=== PATIENT | female | born 1940 | race Caucasian/White ===

== ENCOUNTER 2017-04-19 09:00 | Outpatient (CLI) | payer MEDICARE, OTHER ==
[2017-04-19 17:11] LABS: BASOPHILS # (AUTO) 0.1 10^3/uL (0.0-0.1); EOSINOPHILS # (AUTO) 0.3 10^3/uL (0.0-0.7); EOSINOPHILS % (AUTO) 4.6 %; HCT - HEMATOCRIT 39.5 % (37.0-47.0); HGB - HEMOGLOBIN 13.1 g/dL (12.0-16.0); LYMPHOCYTES # (AUTO) 2.4 10^3/uL (1.5-3.5); LYMPHOCYTES % (AUTO) 33.5 %; MEAN CORPUSCULAR HEMOGLOBIN 29.2 pg (27.0-31.0); MEAN CORPUSCULAR HGB CONC 33.1 g/dL (32.0-36.0); MEAN CORPUSCULAR VOLUME 88.2 fL (81.0-99.0); MEAN PLATELET VOLUME 10.9 fL (7.9-10.8); MONOCYTES # (AUTO) 0.6 10^3/uL (0.0-1.0); MONOCYTES % (AUTO) 7.9 %; NEUTROPHILS # (AUTO) 3.9 10^3/uL (1.5-6.6); RED BLOOD COUNT 4.47 10^6/uL (4.20-5.40); RED CELL DISTRIBUTION WIDTH 13.5 % (12.0-15.0); UNCORRECTED WHITE BLOOD COUNT 7.3 x10^3/uL; WHITE BLOOD COUNT 7.3 x10^3/uL (4.8-10.8)
[2017-04-19 17:22] LABS: ALBUMIN/GLOBULIN RATIO 1.4 (1.0-2.2); BILIRUBIN,TOTAL 0.4 mg/dL (0.2-1.0); CALCIUM 10.1 mg/dL (8.5-10.3); CREATININE 0.7 mg/dL (0.4-1.0); TOTAL PROTEIN 7.1 g/dL (6.7-8.2)
== END 2017-04-19 09:01 | disposition home or self-care (01) ==
LOC: LAB.R 09:00
PROVIDERS: ATTEND Physician Assistant Medical
DX: Z79.899 Other long term (current) drug therapy (principal); I10 Essential (primary) hypertension; E03.9 Hypothyroidism, unspecified; E55.9 Vitamin D deficiency, unspecified
CPT/HCPCS: 80053; 82306; 84443; 85025

== ENCOUNTER 2017-04-26 13:23 | Outpatient (CLI) | payer MEDICARE, OTHER | END 2017-04-26 13:24 | disposition home or self-care (01) | LOC: LAB.R 13:23 | PROVIDERS: ATTEND Physician Assistant Medical | DX: N30.00 Acute cystitis without hematuria (principal) | CPT/HCPCS: 87086 ==

== ENCOUNTER 2017-05-06 14:49 | Outpatient (CLI) | payer MEDICARE, OTHER ==
--- NOTE | 2017-05-11 16:09 | DEXA Report ---
DEXA SCAN: 05/06/2017 CLINICAL INDICATION: Evaluate bone density. TECHNIQUE: Dual energy x-ray absorptiometry (DXA) was performed on a Verbling system. Regions measured are the AP spine, femoral neck, and, if needed, forearm. COMPARISON: None. In accordance with the International Society for Clinical Densitometry (ISCD) guidelines, data from previous exams may be reanalyzed using current recommendations and techniques. This is done to allow a more accurate basis for comparison with the current study. FINDINGS LUMBAR SPINE DATA: REGION BMD (g/cm/cm) T-SCORE Z-SCORE L1 1.490 3.0 4.8 L2 1.202 0.0 1.8 L3 1.232 0.3 2.0 L4 1.260 0.5 2.2 TOTAL 1.293 0.9 2.7 NOTE: All evaluable vertebrae are used for classification. HIP DATA: REGION BMD (g/cm/cm) T-SCORE Z-SCORE Neck 0.789 -1.8 0.2 TOTAL 0.857 -1.2 0.7 NOTE: The femoral neck or total proximal femur, whichever is lowest, is used for classification. Lumbar spine density 1.293 gram/sq cm, T-score 0.9, WHO classification normal. Femoral neck density 0.789 gram/sq cm, T-score -1.8, WHO classification osteopenia. IMPRESSION THE WHO CLASSIFICATION BASED ON THE INTERNATIONAL REFERENCE STANDARD: OSTEOPENIA. FRACTURE RISK: INCREASED. RECOMMENDATION: Patients with diagnosis of osteoporosis or osteopenia should have regular bone mineral density assessment. For those eligible for Medicare, routine testing is allowed once every 2 years. Testing frequency can be increased for patients who have rapidly progressing disease or for those who are receiving medical therapy to restore bone mass. COMMENT: World Health Organization (WHO) definitions for osteoporosis and osteopenia: NORMAL BMD: T-score at -1.0 or higher, fracture risk is low. OSTEOPENIA BMD: T-score between -1.0 and -2.5, fracture risk is increased. OSTEOPOROSIS BMD: T-score at -2.5 or lower, fracture risk high. National Osteoporosis Foundation recommends: 1. Obtain adequate dietary calcium (at least 1200 mg per day) and vitamin D (400 -800 international units per day). 2. Participate, as appropriate, in regular weightbearing and muscle- strengthening exercise. 3. Avoid tobacco use and reduce alcohol and caffeine intake. 4. For more detailed information see the website at www.NOF.org. MTDD
== END 2017-05-06 14:50 | disposition home or self-care (01) ==
LOC: DI 14:49
PROVIDERS: ATTEND Physician Assistant Medical
DX: M85.88 Other specified disorders of bone density and structure, other site (principal)
CPT/HCPCS: 77080

== ENCOUNTER 2017-05-06 14:52 | Outpatient (CLI) | payer MEDICARE, OTHER ==
--- NOTE | 2017-05-13 08:57 | Mammography Report ---
DATE OF EXAM: 05/06/2017 DIGITAL SCREENING MAMMOGRAM: 05/06/2017 CLINICAL INDICATION: A 77-year-old with personal history of benign right breast biopsy, family history of breast cancer for screening. COMPARISON: 04/2016, 04/2015, 04/2014, 04/2013, 03/2012, 02/2011, 11/2009. TECHNIQUE: Routine CC and MLO projections were obtained of the breasts. FINDINGS: Scattered fibroglandular tissue is present within the breasts. There are no dominant masses, suspicious microcalcifications, or secondary signs of malignancy. In comparison to the previous studies, there are no significant changes. IMPRESSION: NO MAMMOGRAPHIC EVIDENCE OF MALIGNANCY. NO SIGNIFICANT INTERVAL CHANGES. RECOMMENDATION: Screening mammography is recommended annually. BIRADS category 1 negative. STANDARD QUALIFYING STATEMENTS 1. This examination was reviewed with the aid of Computed-Aided Detection (CAD). 2. A negative or benign imaging report should not delay biopsy if clinically suspicious findings are present. Consider surgical consultation if warranted. More than 5% of cancers are not identified by imaging. 3. Dense breasts may obscure an underlying neoplasm. TD: 05/11/2017 17:09 BETTIE
== END 2017-05-06 14:53 | disposition home or self-care (01) ==
LOC: DI 14:52
PROVIDERS: ATTEND Physician Assistant Medical
DX: Z12.31 Encounter for screening mammogram for malignant neoplasm of breast (principal); Z80.3 Family history of malignant neoplasm of breast
CPT/HCPCS: 77067

== ENCOUNTER 2017-06-07 08:00 | Outpatient (CLI) | payer MEDICARE, OTHER | END 2017-06-07 08:01 | disposition home or self-care (01) | LOC: LAB.R 08:00 | PROVIDERS: ATTEND Physician Assistant Medical | DX: Z79.899 Other long term (current) drug therapy (principal); E03.9 Hypothyroidism, unspecified | CPT/HCPCS: 84443 ==

== ENCOUNTER 2018-04-18 09:50 | Outpatient (CLI) | payer MEDICARE, OTHER ==
[2018-04-18 14:00] LABS: BASOPHILS # (AUTO) 0.1 10^3/uL (0.0-0.1); BASOPHILS % (AUTO) 0.8 %; EOSINOPHILS # (AUTO) 0.2 10^3/uL (0.0-0.7); EOSINOPHILS % (AUTO) 2.8 %; HGB - HEMOGLOBIN 13.3 g/dL (12.0-16.0); LYMPHOCYTES # (AUTO) 2.6 10^3/uL (1.5-3.5); LYMPHOCYTES % (AUTO) 34.4 %; MEAN CORPUSCULAR HEMOGLOBIN 30.2 pg (27.0-31.0); MEAN CORPUSCULAR HGB CONC 34.5 g/dL (32.0-36.0); MEAN CORPUSCULAR VOLUME 87.5 fL (81.0-99.0); MEAN PLATELET VOLUME 10.6 fL (7.9-10.8); MONOCYTES # (AUTO) 0.6 10^3/uL (0.0-1.0); MONOCYTES % (AUTO) 7.4 %; NEUTROPHILS # (AUTO) 4.1 10^3/uL (1.5-6.6); NEUTROPHILS % (AUTO) 54.6 %; PLT - PLATELET COUNT 218 10^3/uL (130-450); RED BLOOD COUNT 4.41 10^6/uL (4.20-5.40); RED CELL DISTRIBUTION WIDTH 13.5 % (12.0-15.0); WHITE BLOOD COUNT 7.6 x10^3/uL (4.8-10.8)
[2018-04-18 14:15] LABS: ALBUMIN 4.3 g/dL (3.2-5.5); ALBUMIN/GLOBULIN RATIO 1.5 (1.0-2.2); ALKALINE PHOSPHATASE 61 IU/L (42-121); ALT ALANINE AMINOTRANSFERASE 15 IU/L (10-60); AST ASPARTATE AMINOTRANSFERASE 20 IU/L (10-42); BILIRUBIN,TOTAL 0.7 mg/dL (0.2-1.0); BUN - BLOOD UREA NITROGEN 17 mg/dL (6-20); CALCIUM 9.4 mg/dL (8.5-10.3); CARBON DIOXIDE - CO2 24 mmol/L (21-32); CHLORIDE 107 mmol/L (101-111); CHOL/HDL RATIO 3.2 (<4.4); CHOLESTEROL 197 mg/dL; CREATININE 0.7 mg/dL (0.4-1.0); GFR - MDRD 81 (>89); GLUCOSE 92 mg/dL (70-100); HDL CHOLESTEROL 62 mg/dL; LDL CHOLESTEROL,CALCULATED 113 mg/dL; LDL/HDL RATIO 1.8 (<4.4); SODIUM 136 mmol/L (135-145); TOTAL PROTEIN 7.1 g/dL (6.7-8.2); VLDL CHOLESTEROL 22 mg/dL
== END 2018-04-18 09:51 ==
LOC: LAB.R 09:50
PROVIDERS: ATTEND Physician Assistant Medical
DX: E55.9 Vitamin D deficiency, unspecified (principal); Z79.899 Other long term (current) drug therapy; E66.3 Overweight; F41.8 Other specified anxiety disorders; I10 Essential (primary) hypertension; E03.9 Hypothyroidism, unspecified
CPT/HCPCS: 80053; 80061; 82306; 83721; 84443; 85025

== ENCOUNTER 2018-04-27 08:00 | Outpatient (CLI) | payer MEDICARE, OTHER ==
[2018-04-27 17:16] LABS: BILIRUBIN,URINE NEGATIVE (NEGATIVE); GLUCOSE, URINE (UA) NEGATIVE (NEGATIVE); KETONES,URINE (UA) NEGATIVE (NEGATIVE); LEUKOCYTE ESTERASE, URINE SMALL (NEGATIVE); NITRITE,URINE NEGATIVE (NEGATIVE); OCCULT BLOOD,URINE TRACE-INTA (NEGATIVE); PROTEIN,URINE NEGATIVE (NEGATIVE); UROBILINOGEN,URINE 0.2 (NORMAL) E.U./dL (NORMAL)
[2018-04-27 17:18] LABS: CLARITY,URINE CLEAR (CLEAR)
== END 2018-04-27 23:59 | disposition home or self-care (01) ==
LOC: LAB.R 08:00
PROVIDERS: ATTEND Physician Assistant Medical
DX: R41.89 Other symptoms and signs involving cognitive functions and awareness (principal)
CPT/HCPCS: 81003; 81599; 82607; 86592

== ENCOUNTER 2018-05-03 08:34 | Outpatient (CLI) | payer MEDICARE, OTHER ==
[2018-05-03] MEDS ORDERED: GADOBUTROL 10 MMOL/10 ML VIAL ONE (08:51)
[2018-05-03] MEDS ORDERED: GADOBUTROL 10 MMOL/10 ML VIAL IVP ONE (10:13)
--- NOTE | 2018-05-03 13:17 | MRI Report ---
Reason: COGNITIVE CHANGES, BACK PAIN, LUMBAR Procedure Date: 05/03/2018 Accession Number: [id number] / [id number] Procedure: MRI - Lumbar Spine W/O CPT Code: FULL RESULT: EXAM: MRI LUMBAR SPINE WITHOUT CONTRAST EXAM DATE: 05/03/2018 10:27 AM. CLINICAL HISTORY: COGNITIVE CHANGES, BACK PAIN, LUMBAR. COMPARISON: LUMBAR SPINE W/O 04/12/2015 4:16 PM ABDOMEN/PELVIS W/ 06/19/2014 2:42 PM. TECHNIQUE: Multiplanar, multisequence T1-weighted and fluid-sensitive sequences of the lumbar spine from T12 to S1 without contrast. Other: None. FINDINGS: Spinal Canal: The conus terminates at L1-L2. The conus medullaris and cauda equina are unremarkable. Alignment: Anterolisthesis 7 mm, L4 on L5. Anterolisthesis 3 mm L3 on L4. Bone Marrow: Five [id number] lumbar vertebral bodies are assumed. No gross fractures or bone lesions. Modic type II degenerative marrow signal T12-L1 interspace with resolution of extensive marrow edema or Modic type I degenerative marrow signal T12-L1 and the comparison MRI lumbar spine 04/12/2015. Disk Levels/Facets: T12-L1: Severe disk degeneration. Diffuse disk bulge osteophyte complex. Mild bilateral foraminal stenosis. Negative for spinal canal stenosis. Left ligamentum flavum thickening. L1-L2: Severe disk degeneration. Mild right foraminal stenosis from facet hypertrophy and endplate spurring. Moderate facet joint arthrosis. Negative for interval changes compared to the MRI 04/12/2015. L2-L3: Moderate right facet joint arthrosis. Negative for spinal canal stenosis or foraminal stenosis. Mild disk degeneration. L3-L4: Severe right and moderate left facet joint arthrosis. Mild spinal canal stenosis. Negative for left foraminal stenosis. Mild right foraminal stenosis from facet hypertrophy and disk bulge. L4-L5: Moderately severe spinal canal stenosis. Severe facet hypertrophic arthropathy. Ligamentum flavum thickening. Severe right lateral recess stenosis. Moderate left lateral recess stenosis. Mild bilateral foraminal stenosis from facet hypertrophy and 7 mm anterolisthesis L4 on L5. Moderate L4-L5 disk degeneration. L5-S1: Severe disk degeneration. Mild facet joint arthrosis. The right intervertebral foramen is negative for stenosis. Mild left foraminal stenosis from facet hypertrophy and disk degeneration. Posterior 2 mm disk protrusion. Musculature: Normal. No edema or fatty atrophy. Other: The partially visualized retroperitoneum is unremarkable. 1.3 cm cyst superior lateral right kidney. IMPRESSION: 1. Moderately severe spinal canal stenosis, severe right lateral recess stenosis, moderate left lateral recess stenosis and mild bilateral foraminal stenosis L4-L5 with minimal change as compared to the MRI lumbar spine 04/12/2015. 2. Anterolisthesis 7 mm L4 on L5 and there is severe bilateral L4-L5 facet arthropathy. Comment: The following findings are so common in adults without low back pain that while we report their presence, they must be interpreted with caution and in the context of the clinical situation. (Reference Jarvik et al, Spine 2001) Prevalence of findings in patients without low back pain: Disk degeneration (any evidence): 92% Disk desiccation/T2 signal loss: 83% Disk height loss: 56% Disk bulge: 64% Disk protrusion: 32% Annular tear/high intensity zone: 38% RADIA
--- NOTE | 2018-05-03 13:47 | MRI Report ---
Reason: COGNITIVE CHANGES, BACK PAIN, LUMBAR Procedure Date: 05/03/2018 Accession Number: [id number] / [id number] Procedure: MRI - Brain W/WO CPT Code: FULL RESULT: EXAM: MRI BRAIN WITHOUT AND WITH CONTRAST EXAM DATE: 05/03/2018 10:26 AM. CLINICAL HISTORY: Cognitive changes. COMPARISON: BRAIN 11/11/2006 10:34 AM. TECHNIQUE: Multiplanar, multisequence T1-weighted and fluid-sensitive MR sequences of the brain were performed. Sequences optimized for routine evaluation. Other: None. IV Contrast: 8 mL Gadavist. FINDINGS: No acute stroke, hemorrhage or enhancing mass. Compared to the prior study, minimal to mild additional generalized cerebral volume loss consistent with aging. Mild to moderate chronic-appearing mildly progressive cerebral white matter disease is present without enhancement likely secondary to aging and chronic microangiopathy. Contrast opacification of the major dural venous sinuses is present as expected. The major arterial skull base flow voids are present. No acute sinus or mastoid disease. Symmetric unremarkable appearance of the orbits. Unremarkable appearance of the pituitary fossa and cavernous sinuses. IMPRESSION: 1. Chronic age-related changes, mildly progressive. 2. No acute abnormality or enhancing mass. RADIA
== END 2018-05-03 08:35 | disposition home or self-care (01) ==
LOC: DI 08:34
PROVIDERS: ATTEND Physician Assistant Medical
DX: M48.061 Spinal stenosis, lumbar region without neurogenic claudication (principal); M51.17 Intervertebral disc disorders with radiculopathy, lumbosacral region; M47.26 Other spondylosis with radiculopathy, lumbar region; R41.89 Other symptoms and signs involving cognitive functions and awareness
CPT/HCPCS: 70553; 72148; A9585

== ENCOUNTER 2018-05-09 15:28 | Outpatient (CLI) | payer MEDICARE, OTHER ==
--- NOTE | 2018-05-10 09:19 | Mammography Report ---
Reason: SCREENING MAMMO Procedure Date: 05/09/2018 Accession Number: [id number] / [id number] Procedure: RO - Screening Mammo w/Helio CPT Code: FULL RESULT: EXAM: Screening Mammo w/Helio DATE: 05/09/2018 4:01 PM CLINICAL HISTORY: Screening encounter. Personal history of breast cancer status post right breast lumpectomy around 1979. Family history of breast cancer in the mother at age 80. TECHNIQUE: Bilateral CC and MLO views were obtained. COMPARISON: 05/06/2017 through 05/21/2014. FINDINGS: The breasts demonstrate scattered fibroglandular densities bilaterally. Postsurgical changes are seen in the right breast. No suspicious masses, clustered microcalcifications, or regions of architectural distortion are identified. IMPRESSION: Benign findings RECOMMENDATION: Routine annual screening unless otherwise clinically indicated. BIRADS CATEGORY 2: Benign findings STANDARD QUALIFYING STATEMENTS: 1. This examination was not reviewed with the aid of Computer-Aided Detection (CAD). 2. A negative or benign imaging report should not preclude biopsy if clinically suspicious findings are present. 3. Dense breasts may obscure an underlying neoplasm. 4. This examination was reviewed with the aid of 3D breast imaging (tomosynthesis).
== END 2018-05-09 15:29 | disposition home or self-care (01) ==
LOC: DI 15:28
PROVIDERS: ATTEND Physician Assistant Medical
DX: Z12.31 Encounter for screening mammogram for malignant neoplasm of breast (principal); Z85.3 Personal history of malignant neoplasm of breast; Z80.3 Family history of malignant neoplasm of breast
CPT/HCPCS: 77063; 77067

== ENCOUNTER 2019-02-16 09:36 | Day surgery (SDC) | payer MEDICARE, OTHER ==
[~2019-02-16 09:36] MED LIST: BRIMONIDINE 0.2% OPHTH DROPS 5 ML ONE; BSS/LIDOCAINE/EPINEPHRINE 1 ML SYRINGE ONE; CYCLOPENTOLATE 1% OPHTH DROPS 2 ML ONE; EPINEPHrine 1 MG/ML AMP ONE; KETOROLAC 0.45% OPHTH DROPS ONE; PHENYLEPHRINE 2.5% OPHTH 2 ML DROPS ONE; PROPARACAINE 0.5% OPHTH DROPS 15 ML ONE; TIMOLOL 0.5% OPHTH DROPS ONE; TRIAMCIN/MOXIFLOX OPHTHALMIC 0.6 ML VIAL IO ONE; VANCOMYCIN OPHTHALMI 8MG/0.8ML 8 MG/0.8 ML SYRINGE IO ONE
[2019-02-16] MEDS ORDERED: MIDAZOLAM 2 MG/2 ML VIAL IVP ONE (09:37)
[2019-02-16] MEDS ORDERED: LACTATED RINGERS 500 ML IV ONE (10:40)
[2019-02-16] MEDS ORDERED: PROPARACAINE 0.5% OPHTH DROPS 15 ML LEFTEYE ONE (10:56)
[2019-02-16] MEDS ORDERED: KETOROLAC 0.45% OPHTH DROPS LEFTEYE ONE (10:56)
[2019-02-16] MEDS ORDERED: PHENYLEPHRINE 2.5% OPHTH 2 ML DROPS LEFTEYE ONE (10:56)
[2019-02-16] MEDS ORDERED: CYCLOPENTOLATE 1% OPHTH DROPS 2 ML LEFTEYE ONE (10:56)
--- NOTE | 2019-02-16 11:08 | ANESTHESIA ---
Pre-Anesthesia VS, & Labs - Diagnosis Left senile combined cataract - Procedure Left phaco with IOL implant Vital Signs: Temp Pulse Resp BP Pulse Ox 36.9 C 74 18 144/78 H 96 02/16/19 10:42 02/16/19 10:42 02/16/19 10:42 02/16/19 10:42 02/16/19 10:42 Height 5 ft 1 in Weight (kg) 68.04 kg Body Mass Index 28.3 - NPO >8 hours - Is Patient ?: Not Applicable - Lab Results Lab results reviewed: No Home Medications and Allergies Home Medications: Ambulatory Orders Losartan [Cozaar] 50 mg PO DAILY 02/15/19 Levothyroxine [Synthroid] 100 mcg PO DAILY 02/15/15 Losartan [Cozaar] 50 mg PO DAILY 02/15/19 Allergies/Adverse Reactions: Allergies Allergy/AdvReac Type Severity Reaction Status Date / Time Penicillins Allergy Severe Anaphylaxis Verified 02/16/19 10:58 ciprofloxacin [From Cipro] Allergy Unknown Verified 02/16/19 10:58 erythromycin base Allergy Unknown Verified 02/16/19 10:58 Sulfa (Sulfonamide Allergy Unknown Verified 02/16/19 10:58 Antibiotics) tetracycline Allergy Unknown Verified 02/16/19 10:58 codeine AdvReac Dizziness Verified 02/16/19 10:58 Anes History & Medical History - Anesthetic History Anesthesia Complications: reports: No previous complications, Other-see comment (History PONV) Family history of Anesthesia Complications: Denies Family history of Malignant Hyperthermia: Denies - Medical History Cardiovascular: reports: Hypertension Pulmonary: reports: None Gastrointestinal: reports: None Urinary: reports: None Neuro: reports: None Musculoskeletal: reports: Osteoarthritis Endocrine/Autoimmune: reports: HyPOthyroidism Blood Disorders: reports: None Skin: reports: None Smoking Status: Never smoker Psychosocial: reports: No issues indicated - Surgical History General: Cholecystectomy Gynecologic: Dilation and currettage Exam General: Alert, Oriented x3, Cooperative Dental: WNL, TMJ Mouth Opening: Greater than 4 Fingerbreadths Neck Mobility: Normal Mallampati classification: II Thyromental Distance: greater than 6 cm Respiratory: Lungs clear Cardiovascular: Regular rate Mental/Cognitive Status: Alert/Oriented X3 Cognitive Status: Within normal limits Plan Anesthesia Type: MAC Consent for Procedure(s) Verified and Reviewed: Yes Code Status: Attempt Resuscitation ASA classification: 2-Mild systemic disease Is this case an emergency?: No
[2019-02-16] MEDS ORDERED: BRIMONIDINE 0.2% OPHTH DROPS 5 ML OPTH ONE (11:45)
[2019-02-16] MEDS ORDERED: BSS/LIDOCAINE/EPINEPHRINE 1 ML SYRINGE IO ONE (11:46)
[2019-02-16] MEDS ORDERED: TRIAMCIN/MOXIFLOX OPHTHALMIC 0.6 ML VIAL IO ONE (11:46)
[2019-02-16] MEDS ORDERED: TIMOLOL 0.5% OPHTH DROPS OPTH ONE (11:46)
[2019-02-16] MEDS ORDERED: CHONDR SULF/HYALURONATE SYRINGE IO ONE (11:46)
[2019-02-16] MEDS ORDERED: EPINEPHrine 1 MG/ML AMP IVP ONE (11:46)
[2019-02-16] MEDS ORDERED: VANCOMYCIN OPHTHALMI 8MG/0.8ML 8 MG/0.8 ML SYRINGE IO ONE (11:47)
[2019-02-16] MEDS ORDERED: BSS/LIDOCAINE/EPINEPHRINE 1 ML SYRINGE ONE (11:49)
[2019-02-16 12:25] VITALS: BP 120/56
--- NOTE | 2019-02-16 18:18 | OPERATIVE REPORT ---
DATE OF SERVICE: 02/16/2019 Physician: Daquan Lam MD PREOPERATIVE DIAGNOSIS: Visually significant cataract, left eye. This was her first cataract surger y. POSTOPERATIVE DIAGNOSIS: Visually significant cataract, left eye. This was her first cataract surge ry. DESCRIPTION OF PROCEDURE: Phacoemulsification with posterior chamber intraocular lens implant, left eye. SURGEON: Daquan Lam MD ANESTHESIA: Monitored anesthesia care. COMPLICATIONS: None. OPERATIVE INDICATIONS: This is an 79-year-old woman with progressive vision loss in the left eye due to 3-4+ nuclear sclerotic, 2+ posterior subcapsular and vacuolar cataract. Best corrected visual ac uity was 20/50 with glare to hand motion vision in the left eye. Indications for surgery are overall decrease in vision, difficulty seeing street signs, difficulty driving in low light or at night, and difficulty driving at night because of headlights from other vehicles. She was consented at length concerning risks and benefits of cataract surgery, after which she expressed a desire to proceed with surgery. OPERATIVE PROCEDURE: The patient was taken in OR #3 and placed under monitored anesthesia care. A s urgical timeout was conducted confirming correct patient, correct procedure, and correct surgical sit e. She was given topical anesthesia, and prepped and draped in the usual sterile fashion. The eye w as entered at the 6 and 3 o'clock positions. Intracameral Shugarcaine was injected into the anterior chamber, followed by Viscoat. A continuous-tear curvilinear capsulorrhexis was performed. The nucl eus was hydrodissected and phacoemulsified. The cortex was evacuated using automated infusion and as piration. Provisc was injected in the capsular bag, and a 20.0 diopter intraocular lens inserted in the bag. Approximately 0.8 mL of a mixture of triamcinolone, moxifloxacin and vancomycin was injecte d subconjunctivally in the superior quadrant for infection and inflammation prophylaxis. I and A was used to evacuate the viscoelastic materials. The eye was inflated to physiologic pressure using bal anced salt solution and found to be watertight. The patient was taken from the operating room in goo d condition and given postoperative instructions. TD: 02/16/2019 12:05
== END 2019-02-16 09:37 | disposition home or self-care (01) ==
LOC: SDS 09:36
PROVIDERS: ATTEND Ophthalmology
PROC: 08RK3JZ Replacement of Left Lens with Synthetic Substitute, Percutaneous Approach (ICD-10-PCS; principal; 2019-02-16 10:00)
DX: H25.812 Combined forms of age-related cataract, left eye (principal); I10 Essential (primary) hypertension; E03.9 Hypothyroidism, unspecified
CPT/HCPCS: 66984; A9270; J3490; V2632

== ENCOUNTER 2019-05-12 09:20 | Outpatient (CLI) | payer MEDICARE, OTHER ==
[2019-05-12 09:48] LABS: BASOPHILS # (AUTO) 0.1 10^3/uL (0.0-0.1); BASOPHILS % (AUTO) 1.1 %; EOSINOPHILS # (AUTO) 0.4 10^3/uL (0.0-0.7); EOSINOPHILS % (AUTO) 5.5 %; HGB - HEMOGLOBIN 12.3 g/dL (12.0-16.0); LYMPHOCYTES # (AUTO) 2.6 10^3/uL (1.5-3.5); LYMPHOCYTES % (AUTO) 34.2 %; MEAN CORPUSCULAR HEMOGLOBIN 28.7 pg (27.0-31.0); MEAN CORPUSCULAR HGB CONC 31.5 g/dL (32.0-36.0); MEAN CORPUSCULAR VOLUME 90.9 fL (81.0-99.0); MEAN PLATELET VOLUME 11.5 fL (7.9-10.8); MONOCYTES # (AUTO) 0.7 10^3/uL (0.0-1.0); MONOCYTES % (AUTO) 9.4 %; NEUTROPHILS # (AUTO) 3.7 10^3/uL (1.5-6.6); NEUTROPHILS % (AUTO) 49.5 %; PLT - PLATELET COUNT 225 10^3/uL (130-450); RED BLOOD COUNT 4.29 10^6/uL (4.20-5.40); RED CELL DISTRIBUTION WIDTH 13.4 % (12.0-15.0); WHITE BLOOD COUNT 7.5 x10^3/uL (4.8-10.8)
[2019-05-12 10:13] LABS: ALBUMIN 4.1 g/dL (3.2-5.5); ALBUMIN/GLOBULIN RATIO 1.4 (1.0-2.2); ALKALINE PHOSPHATASE 61 IU/L (42-121); ALT ALANINE AMINOTRANSFERASE 18 IU/L (10-60); AST ASPARTATE AMINOTRANSFERASE 21 IU/L (10-42); BILIRUBIN,TOTAL 0.9 mg/dL (0.2-1.0); BUN - BLOOD UREA NITROGEN 11 mg/dL (6-20); CALCIUM 9.4 mg/dL (8.5-10.3); CARBON DIOXIDE - CO2 27 mmol/L (21-32); CHLORIDE 108 mmol/L (101-111); CHOL/HDL RATIO 3.2 (<4.4); CHOLESTEROL 187 mg/dL; CREATININE 0.6 mg/dL (0.4-1.0); GFR - MDRD 96 (>89); GLUCOSE 97 mg/dL (70-100); HDL CHOLESTEROL 58 mg/dL; LDL CHOLESTEROL,CALCULATED 111 mg/dL; LDL/HDL RATIO 1.9 (<4.4); SODIUM 142 mmol/L (135-145); VLDL CHOLESTEROL 18 mg/dL
[2019-05-12 14:19] LABS: FREE T4 (FREE THYROXINE) 1.3 ng/dL (0.58-1.64)
== END 2019-05-12 09:21 | disposition home or self-care (01) ==
LOC: LAB 09:20
PROVIDERS: ATTEND Nurse Practitioner
DX: Z79.899 Other long term (current) drug therapy (principal); M85.80 Other specified disorders of bone density and structure, unspecified site; E55.9 Vitamin D deficiency, unspecified; F32.9 Major depressive disorder, single episode, unspecified; F41.9 Anxiety disorder, unspecified; I10 Essential (primary) hypertension; E03.9 Hypothyroidism, unspecified
CPT/HCPCS: 36415; 80053; 80061; 82306; 82607; 83721; 84439; 84443; 85025

== ENCOUNTER 2019-07-24 10:09 | Outpatient (CLI) | payer MEDICARE, OTHER ==
[2019-07-24 10:36] LABS: BASOPHILS # (AUTO) 0.1 10^3/uL (0.0-0.1); BASOPHILS % (AUTO) 0.7 %; EOSINOPHILS # (AUTO) 0.3 10^3/uL (0.0-0.7); HGB - HEMOGLOBIN 13.1 g/dL (12.0-16.0); LYMPHOCYTES # (AUTO) 2.6 10^3/uL (1.5-3.5); MEAN CORPUSCULAR HEMOGLOBIN 29.6 pg (27.0-31.0); MEAN CORPUSCULAR HGB CONC 32.5 g/dL (32.0-36.0); MEAN CORPUSCULAR VOLUME 91.2 fL (81.0-99.0); MEAN PLATELET VOLUME 11.8 fL (7.9-10.8); MONOCYTES # (AUTO) 0.8 10^3/uL (0.0-1.0); MONOCYTES % (AUTO) 9.3 %; NEUTROPHILS # (AUTO) 4.6 10^3/uL (1.5-6.6); NEUTROPHILS % (AUTO) 55.6 %; PLT - PLATELET COUNT 261 10^3/uL (130-450); RED BLOOD COUNT 4.42 10^6/uL (4.20-5.40); RED CELL DISTRIBUTION WIDTH 13.2 % (12.0-15.0); WHITE BLOOD COUNT 8.3 x10^3/uL (4.8-10.8)
[2019-07-24 11:21] LABS: THYROID STIMULATING HORMONE 0.33 uIU/mL (0.34-5.60)
[2019-07-24 11:23] LABS: FREE T4 (FREE THYROXINE) 1.33 ng/dL (0.58-1.64)
== END 2019-07-24 10:10 | disposition home or self-care (01) ==
LOC: LAB 10:09
PROVIDERS: ATTEND Nurse Practitioner
DX: E03.9 Hypothyroidism, unspecified (principal); R53.81 Other malaise; Z79.899 Other long term (current) drug therapy; R53.83 Other fatigue
CPT/HCPCS: 36415; 84439; 84443; 84481; 85025

== ENCOUNTER 2020-02-14 16:42 | Outpatient (CLI) | payer MEDICARE, OTHER ==
--- NOTE | 2020-02-15 09:21 | MRI Report ---
PROCEDURE: Lumbar Spine W/O INDICATIONS: OSSEOUS STENOSIS OF NEURAL CANAL OF LUMBAR REGION TECHNIQUE: Noncontrast sagittal T1 spin echo and T2 fast echo, sagittal STIR, axial T1 and T2 fast spin echo thr ough the lumbar spine. In cases with scoliosis, additional coronal T2 fast spin echo may be performe d. COMPARISON: Prior lumbar MRI examinations of 04/12/2015 and 05/03/2018 FINDINGS: Image quality: Diagnostic Alignment and Curvature: There is minimal retrolisthesis seen at T12-L1 and L1-L2. Mild grade 1 ante rolisthesis is seen at L4-L5. Bone Marrow: Marrow is of normal overall signal. No acute vertebral body compression fractures. Spinal Cord: Conus medullaris terminates at the L1 level. Visualized cord demonstrates normal signa l and size. Paraspinous Soft Tissues: No paravertebral masses. T12-L1: At least moderate loss of disc height and disc signal can be seen. Reactive marrow endplate changes are seen, which demonstrate mixed signal and are attributed to a combination of edema and fat ty metaplasia (Modic type I and Modic type II changes). Moderate disc bulge is seen, with a central/ left disc protrusion seen. Mild to moderate facet hypertrophy is seen. There is moderate bilateral ne uroforaminal narrowing seen, left worse than right. Mild to moderate central canal narrowing is seen. These imaging findings are similar to the images of the prior examination. L1-L2: At least moderate loss of disc height and disc signal can be seen. Reactive marrow endplat e changes are seen, which are hyperintense on T1-weighted and T2-weighted imaging, without significan t increased STIR signal. These imaging findings are most consistent with fatty metaplasia (Modic type 2 change). Moderate disc bulge is seen, which is eccentric to the right, with a right lateral reces s/right foraminal disc protrusion seen. Moderate facet hypertrophy is seen. There is mild to modera te left-sided and moderate right-sided neuroforaminal narrowing seen. Mild central canal narrowing i s seen. These imaging findings are similar to the images of the prior examination. L2-L3: Moderate loss of disc height and signal are seen. Moderate disc bulge is seen at this leve l. Moderate facet hypertrophy is seen. Associated hypertrophy of the ligamentum flavum can be seen . There is mild to moderate right-sided and mild left-sided neuroforaminal narrowing seen. Mild to m oderate central canal narrowing is seen. Mild progression compared to 2018. L3-L4: Mild loss of disc height and disc signal are seen. Mild to moderate disc bulge is seen. At l east moderate facet hypertrophy is seen. Associated hypertrophy of the ligamentum flavum can be seen. Moderate bilateral neural foraminal narrowing is seen. Moderate central canal narrowing is seen. These imaging findings are similar to the images of the prior examination. L4-L5: Moderate loss of disc height and signal are seen. At least moderate disc bulge is seen, wh ich is eccentric to the right. Prominent facet hypertrophy is seen. Associated hypertrophy of the lig amentum flavum can be seen. Moderate to severe bilateral neuroforaminal narrowing is seen, right wor se than left. Compression is seen upon the exiting nerve roots. Moderate to severe central canal desmond rowing is seen, as on series 701 image 11. These degenerative changes have progressed when compared t o the prior examination. L5-S1: Moderate loss of disc height and signal are seen. Moderate disc bulge is seen, which is ecce ntric to the left. Bridging endplate osteophytes are seen on the left side. Mild to moderate facet hy pertrophy is seen. There is mild right-sided and moderate left-sided neuroforaminal narrowing seen. M inimal central canal narrowing is seen. These imaging findings are similar to the images of the levon or examination. IMPRESSION: Multiple levels of lumbar spine degenerative change are seen, which are most prominent a t the L4-L5 level. Overall, mild progression of degenerative change compared to 2018. Reviewed by: Diogenes Vargas MD on 02/15/2020 8:19 AM ALL Approved by: Diogenes Vargas MD on 02/15/2020 8:19 AM ALL Station ID: [id number]
== END 2020-02-14 16:43 | disposition home or self-care (01) ==
LOC: DI 16:42
PROVIDERS: ATTEND Nurse Practitioner
DX: M43.15 Spondylolisthesis, thoracolumbar region (principal); M43.16 Spondylolisthesis, lumbar region; M51.35 Other intervertebral disc degeneration, thoracolumbar region; M48.05 Spinal stenosis, thoracolumbar region; M51.25 Other intervertebral disc displacement, thoracolumbar region; M47.815 Spondylosis without myelopathy or radiculopathy, thoracolumbar region; M51.36 Other intervertebral disc degeneration, lumbar region; M48.061 Spinal stenosis, lumbar region without neurogenic claudication; M47.816 Spondylosis without myelopathy or radiculopathy, lumbar region; M51.26 Other intervertebral disc displacement, lumbar region; M51.37 Other intervertebral disc degeneration, lumbosacral region; M48.07 Spinal stenosis, lumbosacral region; M47.817 Spondylosis without myelopathy or radiculopathy, lumbosacral region
CPT/HCPCS: 72148

== ENCOUNTER 2020-05-15 13:58 | Outpatient (CLI) | payer MEDICARE, OTHER ==
[2020-05-15 18:47] LABS: THYROID STIMULATING HORMONE 0.93 uIU/mL (0.34-5.60)
[2020-05-15 18:49] LABS: FREE T3 2.9 pg/mL (2.5-3.9)
[2020-05-15 18:51] LABS: FREE T4 (FREE THYROXINE) 1.18 ng/dL (0.58-1.64)
== END 2020-05-15 13:59 | disposition home or self-care (01) ==
LOC: LAB.WCP 13:58
PROVIDERS: ATTEND Nurse Practitioner
DX: E55.9 Vitamin D deficiency, unspecified (principal); E03.9 Hypothyroidism, unspecified; I10 Essential (primary) hypertension; Z79.899 Other long term (current) drug therapy
CPT/HCPCS: 36415; 82306; 84439; 84443; 84481

== ENCOUNTER 2020-09-17 11:27 | Outpatient (CLI) | payer MEDICARE, OTHER ==
--- NOTE | 2020-09-18 13:42 | Mammography Report ---
BILATERAL DIGITAL SCREENING MAMMOGRAM 3D/2D: 09/17/2020 CLINICAL: Routine screening. Family history of breast cancer. Comparison is made to exams dated: 05/09/2018 mammogram, 05/06/2017 mammogram, 05/11/2016 mammogram, and 05/01/2015 mammogram - [facility]. There are scattered fibroglandular elements in both breasts. No significant masses, calcifications, or other findings are seen in either breast. There has been no significant interval change. IMPRESSION: NEGATIVE There is no mammographic evidence of malignancy. A 1 year screening mammogram is recommended. This exam was interpreted at Station ID: [id number]. NOTE: For mammograms, a report in lay terms will be sent to the patient. Approximately 15% of breast malignancies will not be visualized mammographically. In the management of a palpable breast mass, a negative mammogram must not discourage biopsy of a clinically suspicious lesion. Electronically Signed By: Nabeel Ackerman M.D. slc/penrad:09/17/2020 12:11:38 ACR BI-RADS Category 1: Negative 3341F PARENCHYMAL PATTERN: (A) - The breast(s) demonstrate(s) scattered fibroglandular densities. BI-RADS CATEGORY: (1) - 1 RECOMMENDATION: (ANNUAL) - Recommend routine annual screening mammography. [id number] 1 year screening LATERALITY: (B)
== END 2020-09-17 11:28 | disposition home or self-care (01) ==
LOC: DI 11:27
PROVIDERS: ATTEND Family Medicine
DX: Z12.31 Encounter for screening mammogram for malignant neoplasm of breast (principal); Z80.3 Family history of malignant neoplasm of breast

== ENCOUNTER 2020-09-30 20:24 | Outpatient (CLI) | payer MEDICARE, OTHER | END 2020-09-30 20:25 | disposition home or self-care (01) | LOC: COV 20:24 | PROVIDERS: ATTEND Ophthalmology | DX: Z01.812 Encounter for preprocedural laboratory examination (principal); H25.811 Combined forms of age-related cataract, right eye; Z20.822 Contact with and (suspected) exposure to COVID-19 ==

== ENCOUNTER 2020-10-03 07:25 | Day surgery (SDC) | payer MEDICARE, OTHER ==
[~2020-10-03 07:25] MED LIST changes: -BRIMONIDINE 0.2% OPHTH DROPS 5 ML ONE; -BSS/LIDOCAINE/EPINEPHRINE 1 ML SYRINGE ONE; -CYCLOPENTOLATE 1% OPHTH DROPS 2 ML ONE; -EPINEPHrine 1 MG/ML AMP ONE; -PHENYLEPHRINE 2.5% OPHTH 2 ML DROPS ONE; -TIMOLOL 0.5% OPHTH DROPS ONE; -TRIAMCIN/MOXIFLOX OPHTHALMIC 0.6 ML VIAL IO ONE; -VANCOMYCIN OPHTHALMI 8MG/0.8ML 8 MG/0.8 ML SYRINGE IO ONE
[2020-10-03] MEDS ORDERED: EPINEPHrine 1 MG/ML AMP ONE (07:56)
[2020-10-03] MEDS ORDERED: TRIAMCIN/MOXIFLOX OPHTHALMIC 0.6 ML VIAL IO ONE ×2 (07:56→08:53)
[2020-10-03] MEDS ORDERED: BRIMONIDINE 0.2% OPHTH DROPS 5 ML ONE (07:56)
[2020-10-03] MEDS ORDERED: TIMOLOL 0.5% OPHTH DROPS ONE (07:56)
[2020-10-03] MEDS ORDERED: BSS/LIDOCAINE/EPINEPHRINE 1 ML SYRINGE ONE (07:56)
[2020-10-03] MEDS ORDERED: LACTATED RINGERS 500 ML IV ONE ×2 (07:57→09:21)
[2020-10-03] MEDS ORDERED: VANCOMYCIN OPHTHALMI 8MG/0.8ML 8 MG/0.8 ML SYRINGE IO ONE ×2 (07:57→08:53)
--- NOTE | 2020-10-03 08:08 | ANESTHESIA ---
Pre-Anesthesia VS, & Labs - Diagnosis right senile combined cataract - Procedure right eye cataract extraction with IOL Vital Signs: Temp Pulse Resp BP Pulse Ox 36.5 C 76 16 146/68 H 98 10/03/20 07:30 10/03/20 07:30 10/03/20 07:30 10/03/20 07:30 10/03/20 07:30 Height: 5 ft 1 in Weight (kg): 69.2 kg Body Mass Index: 28.8 BMI Classification: Overweight - NPO >8 hours - Is Patient ?: No Home Medications and Allergies Home Medications: Ambulatory Orders Acetaminophen [Tylenol] 2 tab PO DAILY 10/02/20 Baclofen 5 mg PO TID 10/02/20 Meloxicam [Mobic] 1 tablet PO TID 10/02/20 Levothyroxine [Synthroid] 100 mcg PO DAILY 02/15/15 Losartan [Cozaar] 50 mg PO DAILY 02/15/19 Acetaminophen [Tylenol] 2 tab PO DAILY 10/02/20 Baclofen 5 mg PO TID 10/02/20 Meloxicam [Mobic] 1 tablet PO TID 10/02/20 Allergies/Adverse Reactions: Allergies Allergy/AdvReac Type Severity Reaction Status Date / Time Penicillins Allergy Severe Anaphylaxis Verified 10/02/20 14:05 ciprofloxacin [From Cipro] Allergy Unknown Verified 10/02/20 14:05 erythromycin base Allergy Unknown Verified 10/02/20 14:05 Sulfa (Sulfonamide Allergy Unknown Verified 10/02/20 14:05 Antibiotics) tetracycline Allergy Unknown Verified 10/02/20 14:05 codeine AdvReac Dizziness Verified 10/02/20 14:05 Anes History & Medical History - Medical History Cardiovascular: reports: Hypertension Pulmonary: reports: None Gastrointestinal: reports: None Urinary: reports: None Neuro: reports: None Musculoskeletal: reports: Osteoarthritis, Chronic back pain (sciatica) Endocrine/Autoimmune: reports: HyPOthyroidism Blood Disorders: reports: None Skin: reports: None Smoking Status: Never smoker Psychosocial: reports: No issues indicated History of Cancer?: No - Surgical History General: reports: Cholecystectomy, Colonoscopy Eyes Ears Nose Throat (EENT): reports: Cataracts Gynecologic: reports: Dilation and currettage Exam General: Alert, Oriented x3, Cooperative, No acute distress Dental: WNL Mouth Openin Fingerbreadth Neck Mobility: Normal Mallampati classification: I Thyromental Distance: 4-6 cm Mental/Cognitive Status: Alert/Oriented X3, Normal for patient Plan Anesthesia Type: MAC Consent for Procedure(s) Verified and Reviewed: Yes Code Status: Attempt Resuscitation ASA classification: 2-Mild systemic disease Is this case an emergency?: No
[2020-10-03] MEDS ORDERED: MIDAZOLAM 2 MG/2 ML VIAL ONE (08:16)
[2020-10-03] MEDS ORDERED: CHONDR SULF/HYALURONATE SYRINGE IO ONE (08:52)
[2020-10-03] MEDS ORDERED: EPINEPHrine 1 MG/ML AMP IR ONE (08:52)
[2020-10-03] MEDS ORDERED: BRIMONIDINE 0.2% OPHTH DROPS 5 ML OPTH ONE (08:52)
[2020-10-03] MEDS ORDERED: TIMOLOL 0.5% OPHTH DROPS OPTH ONE (08:52)
[2020-10-03] MEDS ORDERED: BSS/LIDOCAINE/EPINEPHRINE 1 ML SYRINGE IO ONE (08:52)
[2020-10-03] MEDS ORDERED: PROPARACAINE 0.5% OPHTH DROPS 15 ML EACHEYE ONE (08:53)
[2020-10-03 09:24] VITALS: BP 127/60
--- NOTE | 2020-10-03 10:13 | OPERATIVE REPORT ---
DATE OF SERVICE: 10/03/2020 Physician: Daquan Lam MD PREOPERATIVE DIAGNOSIS: Visually significant cataract, right eye. Cataract surgery was performed on the left eye on 02/16/2019. POSTOPERATIVE DIAGNOSIS: Visually significant cataract, right eye. Cataract surgery was performed o n the left eye on 02/16/2019. PROCEDURE: Phacoemulsification with posterior chamber intraocular lens implant, right eye. SURGEON: Daquan Lam III, MD ANESTHESIA: Monitored anesthesia care. COMPLICATIONS: None. OPERATIVE INDICATIONS: This is an 80-year-old woman with progressive vision loss in the right eye du e to 3+ nuclear sclerotic and vacuole cataract. Best corrected visual acuity was 20/25 with glare to 20/250 in the right eye. Indications for surgery were overall decrease in vision, difficulty seeing words on a computer screen, difficulty reading, difficulty seeing words, closed caption or game scor es on TV and difficulty with glare or bright lights in any situation. She was consented at length co ncerning risks and benefits of cataract surgery, after which she expressed a desire to proceed with s sumaery. OPERATIVE PROCEDURE: The patient was taken into OR #3 and placed under monitored anesthesia care. A surgical timeout was conducted, confirming correct patient, correct procedure and correct surgical s ite. She was given topical anesthesia and prepped and draped in the usual sterile fashion. The eye was entered at the 12 and 9 o'clock positions. Intracameral Shugarcaine was injected into the anteri or chamber followed by Viscoat. A continuous-tear curvilinear capsulorrhexis was performed. The nuc leus was hydrodissected and phacoemulsified. The cortex was evacuated using automated infusion and a spiration. Provisc was injected in the capsular bag and a 19.5 diopter intraocular lens inserted int o the bag. Infusion and aspiration were used to evacuate the viscoelastic materials. The eye was in flated to physiologic pressure using balanced salt solution and found to be watertight. Approximatel y 0.25 mL mixture of triamcinolone and moxifloxacin was injected transsclerally into the vitreous in the inferotemporal quadrant. An additional 0.55 mL mixture of triamcinolone, moxifloxacin, and vanco mycin was injected subconjunctivally in the superior quadrant for infection and inflammation prophyla xis. Wound integrity was checked with Weck-Miya sponges. The patient was taken from the operating ro om in good condition and given postoperative instructions. TD: 10/03/2020 09:53
--- NOTE | 2020-10-03 13:14 | ANESTHESIA POST OP EVALUATION ---
Anesthesia Post Eval - Post Anesthesia Eval Vitals: Last Vital Signs Temp 36.5 C 10/03/20 09:23 Pulse 70 10/03/20 09:23 Resp 12 10/03/20 09:23 BP 127/60 10/03/20 09:23 Pulse Ox 97 10/03/20 09:23 CV Function Including HR & BP: Stable Pain Control: Satisfactory Nausea & Vomiting: Negative Mental Status: Baseline Respiratory Status: Airway Patent Hydration Status: Satisfactory Anesthesia Complications: None
== END 2020-10-03 07:26 | disposition home or self-care (01) ==
LOC: SDS 07:25
PROVIDERS: ATTEND Ophthalmology
DX: H25.811 Combined forms of age-related cataract, right eye (principal); E03.9 Hypothyroidism, unspecified; I10 Essential (primary) hypertension; E66.3 Overweight; Z68.28 Body mass index [BMI] 28.0-28.9, adult; Z98.42 Cataract extraction status, left eye
CPT/HCPCS: 66984; A9270; J3490; J7120

== ENCOUNTER 2020-10-15 12:02 | Outpatient (CLI) | payer MEDICARE, OTHER ==
--- NOTE | 2020-10-15 15:27 | CT Report ---
PROCEDURE: LOWER EXTREMITY WO - LT INDICATIONS: PAIN IN LT KNEE TECHNIQUE: Noncontrast 1 mm axial sections acquired of the left knee, with coronal and sagittal reformats. COMPARISON: None. FINDINGS: Image quality: Excellent. Bones: No acute fracture identified. Scattered subchondral sclerosis and spurring. Moderate narrowi ng of the medial joint space. Small loose body in the intercondylar notch on image 68/6 measuring 3-4 mm. Large Mishra's cyst incidentally noted measuring 8.2 cm in the cephalocaudad dimension. Soft tissues: Small joint effusion. IMPRESSION: Moderate osteoarthritis. Small loose body seen in the intercondylar notch Large Mishra's cyst Small joint effusion If the patient's pain or other symptoms persist, consider further evaluation with MRI. Reviewed by: Thee Doe MD on 10/15/2020 3:26 PM PDT Approved by: Thee Doe MD on 10/15/2020 3:26 PM PDT Station ID: [id number]
== END 2020-10-15 12:03 | disposition home or self-care (01) ==
LOC: DI 12:02
PROVIDERS: ATTEND Nurse Practitioner Family
DX: M25.562 Pain in left knee (principal); M17.12 Unilateral primary osteoarthritis, left knee; M71.22 Synovial cyst of popliteal space [Baker], left knee; M23.42 Loose body in knee, left knee

== ENCOUNTER 2020-12-19 11:35 | Outpatient (CLI) | payer MEDICARE, OTHER ==
--- NOTE | 2020-12-19 15:40 | XRAY Report ---
PROCEDURE: Hip w/Pelvis 2-3V LT INDICATIONS: LUMBAGO WITH SCIATICA LEFT TECHNIQUE: AP pelvis with lateral view(s) of the left hip(s). COMPARISON: X-ray hip 08/28/2015 FINDINGS: Bones: No fractures or dislocations. Pelvic ring appears intact. No suspicious bony lesions. Dege nerative changes are present within the lower lumbar spine. Mild to moderate bilateral degenerative h ip joint space narrowing, minimally progressive. Small periarticular osteophytes are present without erosions. Soft tissues: The visualized bowel gas pattern is normal. No suspicious soft tissue calcifications. IMPRESSION: 1. Minimally progressive osteoarthritis within the hips bilaterally. Reviewed by: Misty Rodriguez MD on 12/19/2020 3:39 PM PDT Approved by: Misty Rodriguez MD on 12/19/2020 3:39 PM PDT Station ID: [id number]
--- NOTE | 2020-12-19 15:51 | XRAY Report ---
PROCEDURE: Lumbar Spine 2 View INDICATIONS: LUMBAGO WITH SCIATICA LEFT TECHNIQUE: 2 views of the lumbar spine were acquired. COMPARISON: MR Lumbar Spine 02/14/20 FINDINGS: Bones: 5 [id number] vertebrae are present. There is Grade 1 anterolithesis of L4 on L5 measuri ng 9 mm. No vertebral body compression fractures. No suspicious bony lesions. There is multilevel moderate to severe degenerative disc space narrowing most significant at L5-S1. Severe foraminal narr owing is also noted at L5-S1, moderate L4-5. There is a very minimal leftward curvature of the lumbar spine with apex at L3. Soft tissues: Overlying bowel gas pattern is normal. No suspicious soft tissue calcifications. IMPRESSION: Multilevel degenerative changes most severe at L5-S1. If there is concern for further ev aluation of potential nerve root compression at the areas of foraminal narrowing, MRI lumbar spine wi thout contrast is recommended. Reviewed by: Misty Rodriguez MD on 12/19/2020 3:50 PM PDT Approved by: Misty Rodriguez MD on 12/19/2020 3:50 PM PDT Station ID: [id number]
== END 2020-12-19 11:36 | disposition home or self-care (01) ==
LOC: DI.S 11:35
PROVIDERS: ATTEND Nurse Practitioner Family
DX: M43.16 Spondylolisthesis, lumbar region (principal); M51.36 Other intervertebral disc degeneration, lumbar region; M51.37 Other intervertebral disc degeneration, lumbosacral region; M48.07 Spinal stenosis, lumbosacral region; M16.0 Bilateral primary osteoarthritis of hip

== ENCOUNTER 2021-06-18 15:40 | Outpatient (CLI) | payer MEDICARE, OTHER | END 2021-06-18 23:59 | disposition home or self-care (01) | LOC: RT 15:40 | PROVIDERS: ATTEND Nurse Practitioner Family | DX: R06.09 Other forms of dyspnea (principal) | CPT/HCPCS: 93005 ==

== ENCOUNTER 2021-07-03 12:22 | Outpatient (CLI) | payer MEDICARE, OTHER ==
--- NOTE | 2021-07-03 13:33 | CARDIAC PROCEDURE NOTE ---
Stress Test Report Service Date: 07/03/21 Service Time: 12:30 Ordering Provider: Sheri Wilson NP Indication for Test: Assess for an ischemic contribution to exertional dyspnea. Significant Medical History: Siri reports gradually progressive exertional dyspnea over the past approximately 3 years, since the time of her 's passing and a short episode of confusion with left-sided weakness. These latter symptoms fully resolved within 30-60 minutes but she wondered if she may have had a "mini- stroke", for which she never sought evaluation. Her exertional dyspnea has worsened during the Covid pandemic, due to its imposed reduction in her usual activities out and about. In recent weeks to months she fairly reproducibly notices shortness of breath [place] and at times going up the single flight of stairs in her home, requiring her to stop and catch her breath. She denies other associated potential ischemic symptoms such as chest discomfort, abdominal discomfort, significant diaphoresis and lighth eadedness. She has a separate concern for occasional diaphragmatic "cramps" which are always nonexertional, and occur randomly with discomfort slightly to the left of the midline under her diaphragm. The discomfort typically resolve with massage over the course of about 15 minutes. She questions whether her symptoms could represent congestive heart failure, which her mother and maternal uncle suffered from. Cardiac Risk Factors: Has history of treated hypertension and some family history of heart disease on both sides of her familly; she denies tobacco smoking ever and known diabetes or hyperlipidemia. Type of Stress Test: ETT with Myocardial Perfusion Imaging Procedure: -Exercise Treadmill Test- After signing informed consent, the patient underwent resting SPECT imaging and then performed treadmill exercise using a Modified Donaldo protocol. The patient exercised for 7 minutes and achieved a peak heart rate of 128 (92 percent predicted maximum heart rate for age), and an estimated workload of 4.1 METS. The test was terminated due to fatigue/shortness of breath, having achieved her target heart rate. Resting heart rate: 89 Peak heart rate: 128 Normal response to exercise. Resting BP: 177/107 Peak BP: 194/101 Hypertensive at rest with physiologic BP response to exercise. Rhythm during exercise: Sinus rhythm throughout. Symptoms: She reported increased dyspnea at about 6:30 of exercise that was becoming limiting; she experienced no chest discomfort or cramping. EKG at rest showed normal sinus rhythm, normal in all aspects. EKG at peak stress showed J-point depression with upsloping ST segments NOT meeting diagnostic criteria for ischemia. In Recovery heart rate and blood pressure gradually declined, remaining elevated above baseline (96, 165/96) at 5 minutes. Nuclear imaging performed at rest and with stress and will be reported separately. Quan Laws MD, was present throughout this treadmill stress study and supervised it in its entirety. Summary: 1) Exercise tolerance above average for age as evidenced by SHERLYN of -32%. 2) Normal resting EKG. 3) Adequate level of exercise was achieved on this treadmill stress test. 4) Hypertensive at rest with further physiologic BP increase with exercise. 5) No ischemic changes by EKG criteria were seen at peak stress. 6) Analysis of gated nuclear images reveals normal left ventricular size and systolic function; SPECT analysis reveals normal perfusion of the left ventricle at rest and following treadmill stress, thus no evidence of prior infarct or inducible ischemia. See separate report for more detail. CONCLUSIONS: 1) Low risk treadmill stress myocardial perfusion study with absence of inducible ischemia by symptoms, EKG and perfusion imaging. 2) She was encouraged to continue to work on slow/steady weight loss and to continue monitoring efficacy of blood pressure control.
[2021-07-03] MEDS ORDERED: REGADENOSON 0.4 MG/5 ML SYRINGE IVP ONE (14:12)
[2021-07-03] MEDS ORDERED: AMINOPHYLLINE 500 MG/20 ML VIAL ONE (14:12)
--- NOTE | 2021-07-04 10:00 | Nuclear Medicine Report ---
PROCEDURE: Rest and pharmacological myocardial perfusion SPECT with gated imaging and ejection fraction INDICATIONS: DYSPNEA ON EXERTION/ LEXISCAN RADIOPHARMACEUTICAL: 11.9 mCi Tc-99m Myoview IV at rest and 34.1 mCi Tc-99m Myoview IV at peak exerc ise. Wgg-joa-bcsxtrix was performed. TECHNIQUE: Radiopharmaceutical was injected at peak stress test, and also at rest. SPECT images wer e obtained. SPECT myocardial perfusion images were displayed in short axis, horizontal long axis, an d vertical long axis views. Gated images were reviewed using AutoQUANT software. COMPARISON: None available. FINDINGS: Raw data: There is good myocardial labeling by radiotracer. No significant motion artifacts. Lung- to-heart ratio is 0.40 (normal is less than 0.46 for tetrafosmin tracer). Left ventricle function: Gated images demonstrate normal left ventricle wall thickening. No segment al wall motion abnormality. No transient ischemic dilation; TID is 1.08 (normal less than 1.30). Th e left ventricle resting end-diastolic volume is normal. Left ventricle stress ejection fraction is >70%; values are above 45%. Myocardial perfusion: There is normal distribution of activity in the left and right ventricular juan cardium. No fixed or reversible perfusion defects. IMPRESSION: 1. Normal myocardial perfusion images. No perfusion defect to suggest myocardial ischemia or infarct. 2. Normal left ventricular volume and systolic function. 3. Please correlate with stress EKG result. PQRS ATTESTATIONS: Measure 322 - Is this imaging test primarily performed on a low-risk surgery patient for preoperative evaluation within 30 days preceding their low-risk non-cardiac surgery? Low-risk surgery is defined as cardiac or myocardial infarction less than 1%, including (but not limited to) endoscopic pr ocedures, superficial procedures, cataract surgery, and excisional breast surgery: Answer: No Measure 323 - Is this imaging test performed primarily for the monitoring of an asymptomatic patient who had percutaneous coronary intervention on the visit date or within 2 years of the visit date? An swer: No Measure 324 - Is this imaging test performed primarily for the initial detection and risk assessment on an asymptomatic, low coronary heart disease patient? Low CHD risk definition = clinicians should consider the maximum number of available patient factors used to estimate risk based on [place] (A TP III criteria), typically age, gender, diabetes, smoking status, and use of blood pressure medicati on, and integrate age appropriate estimates for missing elements, such as LDL or standard blood press ure. Answer: No Reviewed by: Whitney Worthy MD on 07/04/2021 9:58 AM PST Approved by: Whitney Worthy MD on 07/04/2021 9:58 AM PST Station ID: [id number]
== END 2021-07-03 12:23 | disposition home or self-care (01) ==
LOC: DI 12:22
PROVIDERS: ATTEND Nurse Practitioner Family
DX: R06.09 Other forms of dyspnea (principal); I10 Essential (primary) hypertension; Z82.49 Family history of ischemic heart disease and other diseases of the circulatory system
CPT/HCPCS: 78452; 93016; 93017; 93018; A9500

== ENCOUNTER 2021-07-30 13:09 | Outpatient (CLI) | payer MEDICARE, OTHER | END 2021-07-30 13:10 | disposition home or self-care (01) | LOC: RT 13:09 | PROVIDERS: ATTEND Nurse Practitioner Family | DX: R06.09 Other forms of dyspnea (principal) | CPT/HCPCS: 94010 ==

== ENCOUNTER 2022-02-25 13:18 | Outpatient (CLI) | payer MEDICARE, OTHER ==
--- NOTE | 2022-02-25 17:42 | XRAY Report ---
PROCEDURE: Cervical Spine 2 View INDICATIONS: CERVICAL RADICULOPATHY TECHNIQUE: 3 view(s) of the cervical spine were acquired. COMPARISON: None. FINDINGS: Bones: Lateral view extends to the C7 level. Moderate spondylosis, particularly in the lower cervical spine. No spondylolisthesis. No definite acute fracture. Normal C1 on C2 alignment. Soft tissues: No prevertebral soft tissue swelling. Partially evaluated interstitial prominence at t he pulmonary apices of uncertain etiology. IMPRESSION: Moderate spondylosis as above. Consider further evaluation or MRI if needed. Reviewed by: Lester Maldonado MD on 02/25/2022 5:41 PM PDT Approved by: Lester Maldonado MD on 02/25/2022 5:41 PM PDT Station ID: [id number]
== END 2022-02-25 13:19 | disposition home or self-care (01) ==
LOC: DI.S 13:18
PROVIDERS: ATTEND Nurse Practitioner Family
DX: M47.812 Spondylosis without myelopathy or radiculopathy, cervical region (principal)

== ENCOUNTER 2022-07-09 13:38 | Outpatient (CLI) | payer MEDICARE, OTHER ==
--- NOTE | 2022-07-09 17:26 | XRAY Report ---
PROCEDURE: Femur 2V LT INDICATIONS: PAIN IN LEFT THIGH. LIMB. TECHNIQUE: 2 views of the femur were acquired. COMPARISON: X-ray pelvis and left hip, 12/19/2020. FINDINGS: Bones: No fractures or dislocation in left femur. The lateral view of the proximal tibia is rotated and appears irregular. The proximal tibia is not included on the frontal view. Severe knee joint dege neration. Mild left hip joint degeneration. Soft tissues: No suspicious soft tissue calcifications or masses. Small knee joint effusion. IMPRESSION: 1. No fracture in left femur. 2. The proximal tibia appears irregular on the lateral view, and is not included in the frontal view. Cannot rule out proximal tibial fracture. There is a small knee joint effusion. If clinically indica tunde, x-ray of the knee is recommended. 3. Degenerative joint disease in left knee and hip. Reviewed by: Whitney Worthy MD on 07/09/2022 4:44 PM PST Approved by: Whitney Worthy MD on 07/09/2022 4:44 PM PST Station ID: [id number]
== END 2022-07-09 13:39 | disposition home or self-care (01) ==
LOC: DI.S 13:38
PROVIDERS: ATTEND Nurse Practitioner Family
DX: M25.462 Effusion, left knee (principal); M17.12 Unilateral primary osteoarthritis, left knee; M16.12 Unilateral primary osteoarthritis, left hip

== ENCOUNTER 2022-07-22 11:58 | Outpatient (CLI) | payer MEDICARE, OTHER ==
--- NOTE | 2022-07-22 17:09 | XRAY Report ---
PROCEDURE: Tib/Fib LT INDICATIONS: PAIN IN LEFT LEG TECHNIQUE: 2 views of the tibia and fibula were acquired. COMPARISON: CT left lower extremity, 10/15/2020. FINDINGS: Bones: No fractures or dislocations. No suspicious bony lesions. Moderate knee joint degeneration. Soft tissues: No suspicious soft tissue calcifications or masses. IMPRESSION: 1. No acute osseous abnormalities. Reviewed by: Whitney Worthy MD on 07/22/2022 5:07 PM PST Approved by: Whitney Worthy MD on 07/22/2022 5:07 PM PST Station ID: [id number]
== END 2022-07-22 11:59 | disposition home or self-care (01) ==
LOC: DI.S 11:58
PROVIDERS: ATTEND Nurse Practitioner Family
DX: M17.12 Unilateral primary osteoarthritis, left knee (principal); M79.605 Pain in left leg

== ENCOUNTER 2022-09-11 12:46 | Outpatient (CLI) | payer MEDICARE, OTHER ==
--- NOTE | 2022-09-11 15:19 | MRI Report ---
PROCEDURE: HIP WO - LT INDICATIONS: PAIN IN LEFT HIP TECHNIQUE: Noncontrast coronal T1 spin echo and STIR through the bony pelvis. Coronal and axial T2 fast spin ec ho with fat saturation, sagittal T1 spin echo, and oblique axial T2 fast spin echo with fat saturatio n through the hip. COMPARISON: None. FINDINGS: Image quality: Excellent. Bones and joints: Moderate bilateral hip joint osteoarthritic changes are seen with superior joint sp rosa isela narrowing and subchondral sclerosis. There is no marrow edema. No intraosseous lesions or fractur es. No avascular necrosis of the femoral heads. Prominence of left superior anterior femoral head ne ck junction is seen with subtle subcortical cystic area which can be seen associated with cam-type fe moral acetabular impingement. The visualized lower lumbar spine appears normally aligned. Tendons: The gluteus medius and minimus tendinosis at their insertion on greater trochanter is seen, without associated muscle atrophy. The iliopsoas tendon appears intact, without adjacent bursal flu id collections. Tendinosis involving origin of left hamstring tendons at the ischial tuberosity is al so noted. Labrum and cartilage: Subtle superior anterior labral tear at 12 to 1:00 position is noted with conto ur irregularity and signal abnormality. Diffuse thinning of cartilage surface of femoral head is also seen. The alpha angle of the femur is within normal limits at less than 55 degrees. Soft tissues: Visualized muscles demonstrate normal bulk and internal signal. The proximal sciatic neurovascular bundle appears normal adjacent to the hamstring tendons. No free pelvic fluid. Bladde r wall thickness is normal. Genitourinary structures and bowel loops appear normal where visualized. IMPRESSION: 1. Moderate bilateral hip joint osteoarthritis. No hip fracture or dislocation. No evidence of avascu lar necrosis. 2. Prominence of superior anterior left femoral head neck junction with subcortical cystic area which can be seen associated with cam-type femoral acetabular impingement. 3. Distal left gluteus medius and minimus tendinosis. Tendinosis also seen involving left hamstring t endon origins at ischial tuberosity. No other muscle or tendon signal abnormality. 4. Suggestion of superior anterior left hip labral tear at 12 to 1:00 position. Reviewed by: Geraldo Wise MD on 09/11/2022 3:18 PM PDT Approved by: Geraldo Wise MD on 09/11/2022 3:18 PM PDT Station ID: [id number]
== END 2022-09-11 12:47 | disposition home or self-care (01) ==
LOC: DI 12:46
PROVIDERS: ATTEND Nurse Practitioner Family
DX: M16.12 Unilateral primary osteoarthritis, left hip (principal); M67.952 Unspecified disorder of synovium and tendon, left thigh

== ENCOUNTER 2022-09-26 12:50 | Outpatient (CLI) | payer MEDICARE, OTHER ==
[~2022-09-26 12:50] MED LIST changes: +GADOBUTROL 7.5 MMOL/7.5 ML VIAL ONE; -KETOROLAC 0.45% OPHTH DROPS ONE; -PROPARACAINE 0.5% OPHTH DROPS 15 ML ONE
--- NOTE | 2022-09-28 08:27 | MRI Report ---
PROCEDURE: BRAIN WO INDICATIONS: ALTERED MENTAL STATUS TECHNIQUE: Noncontrast axial T1 spin echo, axial T2 fast spin echo, sagittal and axial FLAIR, coronal T2 fast sp in echo, axial gradient echo, axial diffusion and ADC through the brain. COMPARISON: MRI brain 05/03/2018. FINDINGS: Image quality: Excellent. The ventricular system and cortical sulci demonstrate atrophy, consistent for patient's stated age. There are areas of hyperintense T2/FLAIR signal in the periventricular and subcortical white matter. There is no acute intra or extra-axial fluid collection. No acute hemorrhage, mass lesion or midlin e shift. Brainstem is unremarkable. There are no areas of restricted diffusion. Globes are symmetr ical. Sinuses are aerated. Osseous structures are intact. IMPRESSION: 1. No acute intracranial process. 2. Moderate atrophy and chronic microvascular ischemic changes. Reviewed by: Misty Rodriguez MD on 09/28/2022 8:26 AM PDT Approved by: Misty Rodriguez MD on 09/28/2022 8:26 AM PDT Station ID: [id number]
== END 2022-09-26 12:51 | disposition home or self-care (01) ==
LOC: DI 12:50
PROVIDERS: ATTEND Family Medicine
DX: G31.84 Mild cognitive impairment of uncertain or unknown etiology (principal); G31.89 Other specified degenerative diseases of nervous system; I67.82 Cerebral ischemia
CPT/HCPCS: 36415; 80048

== ENCOUNTER 2022-09-26 12:51 | Outpatient (CLI) | payer MEDICARE, OTHER ==
[2022-09-26 13:18] LABS: CALCIUM 9.2 mg/dL (8.5-10.3); CREATININE 0.7 mg/dL (0.4-1.0); POTASSIUM 3.9 mmol/L (3.5-5.0)
== END 2022-09-26 12:52 | disposition home or self-care (01) ==
LOC: LAB 12:51
PROVIDERS: ATTEND Nurse Practitioner Family
DX: G31.84 Mild cognitive impairment of uncertain or unknown etiology (principal)
CPT/HCPCS: 36415; 80048

== ENCOUNTER 2023-10-06 14:16 | Outpatient (CLI) | payer MEDICARE, OTHER ==
--- NOTE | 2023-10-06 17:49 | XRAY Report ---
PROCEDURE: SI Joints 3+V INDICATIONS: SI JOINT PAIN TECHNIQUE: 3 views of the sacroiliac joints were acquired. COMPARISON: None. FINDINGS/IMPRESSION: Moderate degenerative disc disease at L5-S1. The sacrum is grossly intact. Mild degenerative changes of bilateral sacral joint. No significant subchondral sclerosis, erosion or diastases of either sacro iliac joint. No ankylosis of either sacroiliac joint. Reviewed by: Eden Roy MD on 10/06/2023 5:48 PM PDT Approved by: Eden Roy MD on 10/06/2023 5:48 PM PDT Station ID: [id number]
== END 2023-10-06 14:17 | disposition home or self-care (01) ==
LOC: DI 14:16
PROVIDERS: ATTEND Registered Nurse
DX: M51.37 Other intervertebral disc degeneration, lumbosacral region (principal); M47.818 Spondylosis without myelopathy or radiculopathy, sacral and sacrococcygeal region